=== PATIENT | male | born 1970 | race Caucasian/White ===

== ENCOUNTER 2023-10-29 09:35 | Emergency (ER) | payer SELFPAY ==
[2023-10-29 09:53] LABS: BASOPHILS ABSOLUTE AUTO 0.06 K/uL (0.00-0.20); BASOPHILS PERCENT AUTO 0.4 % (0.0-2.0); EOSINOPHILS ABSOLUTE AUTO 0.76 K/uL (0.00-0.50); EOSINOPHILS PERCENT AUTO 4.7 % (0.0-5.0); HEMATOCRIT 48.5 % (39.0-49.0); HEMOGLOBIN 16.4 g/dL (13.1-16.8); LYMPHOCYTES PERCENT AUTO 12.5 % (10.0-50.0); MEAN CORPUSCULAR HEMOGLOBIN 30.8 pg (28.2-33.3); MEAN CORPUSCULAR HGB CONC 33.8 g/dL (31.7-36.0); MEAN CORPUSCULAR VOLUME 91.2 fL (84.0-98.0); MONOCYTES ABSOLUTE AUTO 0.96 K/uL (0.00-1.00); NEUTROPHILS ABSOLUTE AUTO 12.24 K/uL (1.40-7.00); NEUTROPHILS PERCENT AUTO 76.4 % (45.0-80.0); PLATELET COUNT,PLT 333 K/uL (150-350); RED BLOOD CELL COUNT 5.32 M/uL (4.33-5.41); RED CELL DISTRIBUTION WIDTH 14.7 % (11.2-14.1)
[2023-10-29] MEDS: Diltiazem 25 MG/5 ML SDV IVPUSH ONE (09:59)
[2023-10-29] MEDS: Sodium Chloride 0.9% 10 ML Syringe FLUSH PRN (10:00)
[2023-10-29 10:19] LABS: ALANINE AMINOTRANSFERASE,ALT 95 U/L (12-78); ALBUMIN 4.1 g/dL (3.4-5.0); ALKALINE PHOSPHATASE 114 IU/L (46-116); ANION GAP 9.7 meq/L (7-15); ASPARTATE AMNIOTRANSFERASE,AST 37 U/L (15-37); BILIRUBIN TOTAL 0.7 mg/dL (0.2-1.0); BLOOD UREA NITROGEN,BUN 21 mg/dL (7-18); CALCIUM 8.8 mg/dL (8.5-10.1); CARBON DIOXIDE,CO2 27.3 mmol/L (21.0-32.0); CHLORIDE,CL 101 mmol/L (98-107); GLUCOSE RANDOM 182 mg/dL (70-99); PROTEIN TOTAL,TP 7.9 g/dL (6.4-8.2); SODIUM,NA 138 mmol/L (136-145)
[2023-10-29 10:20] LABS: ESTIMATED GFR 56 mL/min (>=60); MAGNESIUM 1.8 mg/dL (1.8-2.4)
[2023-10-29] MEDS: Magnesium Sulfate/Water 2 GM in Premix Bag 1 BAG IV ONE (10:30)
[2023-10-29] MEDS: Sodium Chloride 0.9% 1,000 ML IV ONE (10:30)
[2023-10-29] MEDS: Diltiazem IR 60 MG Tab PO ONE (12:09)
== END 2023-10-29 12:15 | disposition home or self-care (01) ==
LOC: LL.ED 09:35
DX: I48.91 Unspecified atrial fibrillation (principal); N28.9 Disorder of kidney and ureter, unspecified; E78.00 Pure hypercholesterolemia, unspecified; F17.210 Nicotine dependence, cigarettes, uncomplicated; Z79.899 Other long term (current) drug therapy; Z79.01 Long term (current) use of anticoagulants
CPT/HCPCS: 36415; 71045; 80053; 83735; 83880; 84484; 85025; 85379; 93005; 96365; 96366; 96375; 99285-25; A9270-GY; J3475; J3490; J7030